=== PATIENT | male | born 1960 | race Caucasian/White ===

== ENCOUNTER 2019-10-14 16:42 | Inpatient (IN) | payer OTHER ==
[~2019-10-14] VITALS: Ht 182.9 cm; Wt 88.6 kg
[2019-10-14] MEDS ORDERED: COZAAR25 MG PO (16:52)
[2019-10-14] MEDS ORDERED: GLUCOPHAGE500 MG PO (16:52)
[2019-10-14] MEDS ORDERED: ULTRAM50 MG PO (16:52)
[2019-10-14] MEDS ORDERED: RITALIN5 MG PO (16:53)
[2019-10-14] MEDS ORDERED: LIPITOR20 MG PO (16:53)
[2019-10-14] MEDS ORDERED: TESTOSTERONE (16:54)
[2019-10-14] MEDS ORDERED: GLUCOTROL ER2.5 MG PO (17:05)
[2019-10-14] MEDS ORDERED: KAZANO 12.5-1,1 EACH PO (17:05)
[2019-10-14 17:51] VITALS: BP 138/86
--- NOTE | 2019-10-14 17:51 | NUR ---
PATIENT MOVED TO ROOM T-3 FOR [facility] CONSULT. HAS SIGN ALL REQUIRED DOCUMENTS NEEDED TO PROCEED WITH CONSULT INCLUDING TPA CONSENT AND TELEMED CONSENT.
--- NOTE | 2019-10-14 18:05 | NUR ---
[facility] CONNECTED VIA TELEMED.
[2019-10-14 18:06] VITALS: BP 150/95
[2019-10-14 18:06] LABS: HEMATOCRIT 39.8 % (42.0-54.0); HEMOGLOBIN 13.8 g/dL (13.5-17.5); MCH 31.3 pg (26.0-34.0); MCHC 34.7 g/dL (31.0-37.0); MCV 90.2 fL (80.0-100.0); MEAN PLATELET VOLUME 9.1 fL (7.4-10.4); NEUTROPHILS 69.2 % (40-80); PLATELET COUNT 203 10x3/uL (130-400); RBC 4.41 10x6/uL (4.20-6.10); RDW 13.3 % (11.5-14.5); WBC 7.7 10x3/uL (4.8-10.8)
--- NOTE | 2019-10-14 18:10 | NUR ---
CONNECTED WITH DR HUFFMAN WITH [facility] VIA TELEMED
[2019-10-14 18:41] LABS: INR 0.88 (0.85-1.17)
[2019-10-14 18:42] LABS: ALKALINE PHOSPHATASE 103 U/L (30-120); ALT (SGPT) 89 U/L (10-68); BILIRUBIN - TOTAL 0.71 mg/dL (0.2-1.3); CALCIUM 8.6 mg/dL (8.5-10.1); CARBON DIOXIDE 27.7 mmol/L (21.0-32.0); CKMB 6.6 U/L (0.0-3.6); CREATINE KINASE 243 UL (21-232); CREATININE - SERUM 1.1 mg/dL (0.6-1.3); GLUCOSE 122 mg/dL (74-106); PROTEIN - SERUM 6.4 g/dL (6.4-8.2); THYROID STIMULATING HORMONE 2.76 uIU/mL (0.36-3.74); UREA NITROGEN 20 mg/dL (7-18); eGFR NON AFRICAN AMERICAN 72 mL/min (90-120)
[2019-10-14 18:54] LABS: ALBUMIN 3.7 g/dL (3.4-5.0); CALC OSMOLALITY 275 mosm/kg (275-300); CHLORIDE - SERUM 100 mmol/L (98-107); MAGNESIUM - SERUM 1.6 mg/dL (1.8-2.4); POTASSIUM - SERUM 4.2 mmol/L (3.5-5.1); SODIUM 136 mmol/L (136-145)
[2019-10-14 19:09] VITALS: BP 155/98
[2019-10-14 19:29] LABS: UDS - AMPHET NEGATIVE QUAL (NEGATIVE); UDS - BARB NEGATIVE QUAL (NEGATIVE); UDS - BENZO NEGATIVE QUAL (NEGATIVE); UDS - COCAINE NEGATIVE QUAL (NEGATIVE); UDS - OPIATE NEGATIVE QUAL (NEGATIVE); UDS - PCP NEGATIVE QUAL (NEGATIVE); UDS - THC NEGATIVE QUAL (NEGATIVE)
[2019-10-14 19:35] LABS: BILIRUBIN NEGATIVE (NEGATIVE); GLUCOSE NEGATIVE (NEGATIVE); KETONE NEGATIVE (NEGATIVE); NITRITE NEGATIVE (NEGATIVE); SPECIFIC GRAVITY 1.015 (1.005-1.020); UROBILINOGEN NORMAL (NORMAL)
[2019-10-14 20:00] VITALS: BP 157/102
--- NOTE | 2019-10-14 20:27 | NUR ---
ATTEMPTED IV X3. UNABLE TO OBTAIN.EDP NOTIFIED
[2019-10-14 21:24] VITALS: BP 147/97
[2019-10-14 21:48] LABS: CKMB 6.8 U/L (0.0-3.6); CREATINE KINASE 234 UL (21-232)
[2019-10-14 21:51] LABS: TROPONIN-I < 0.017 ng/mL (0.000-0.060)
[2019-10-14 22:15] VITALS: BP 156/96
--- NOTE | 2019-10-15 03:00 | NUR ---
PUPILS OF PT EQUAL AND REACTIVE SPEACH IS CLEAR QUALITY PROJECT MANAGER ARE EQUAL PT REPORTS "I FEEL GREAT" PT IS ALERT AND [id number] EVEN AND UNLABORED EKG AT THIS TIME SHOWS NORMAL SINUS
[2019-10-15 03:20] LABS: HEMATOCRIT 39.9 % (42.0-54.0); HEMOGLOBIN 13.7 g/dL (13.5-17.5); LYMPHOCYTES 32.3 % (15-50); MCH 31.2 pg (26.0-34.0); MCHC 34.3 g/dL (31.0-37.0); MCV 90.9 fL (80.0-100.0); MEAN PLATELET VOLUME 8.9 fL (7.4-10.4); NEUTROPHILS 57.2 % (40-80); PLATELET COUNT 204 10x3/uL (130-400); RBC 4.39 10x6/uL (4.20-6.10); RDW 13.7 % (11.5-14.5)
[2019-10-15 03:22] LABS: WBC 5.4 10x3/uL (4.8-10.8)
[2019-10-15 03:48] LABS: ALBUMIN 3.5 g/dL (3.4-5.0); ALKALINE PHOSPHATASE 106 U/L (30-120); ALT (SGPT) 80 U/L (10-68); BILIRUBIN - TOTAL 0.69 mg/dL (0.2-1.3); CALC OSMOLALITY 283 mosm/kg (275-300); CALCIUM 8.5 mg/dL (8.5-10.1); CHLORIDE - SERUM 105 mmol/L (98-107); CKMB 6.6 U/L (0.0-3.6); CREATINE KINASE 258 UL (21-232); CREATININE - SERUM 1.1 mg/dL (0.6-1.3); GLUCOSE 125 mg/dL (74-106); PROTEIN - SERUM 6.3 g/dL (6.4-8.2); SODIUM 141 mmol/L (136-145); TROPONIN-I < 0.017 ng/mL (0.000-0.060); UREA NITROGEN 19 mg/dL (7-18); eGFR NON AFRICAN AMERICAN 72 mL/min (90-120)
[2019-10-15 04:00] VITALS: BP 132/79
[2019-10-15 05:29] VITALS: Ht 182.9 cm; Wt 88.6 kg
[2019-10-15 09:39] LABS: CKMB 6.8 U/L (0.0-3.6); CREATINE KINASE 227 UL (21-232); TROPONIN-I < 0.017 ng/mL (0.000-0.060)
[2019-10-15 10:10] VITALS: BP 150/97
[2019-10-15 13:45] VITALS: BP 166/65
--- NOTE | 2019-10-15 16:51 | NUR ---
WENT INTO PTS ROOM TO TAKE A BLOOD SUGAR AND THE PATIENT STATES THAT HE IS TAKING HIS HOME ORAL ANTIDIABETICS. OFFERED EDUCATION ON THE DANGERS OF TAKING HOME MEDICATIONS IN THE HOSPITAL AND THE PATIENT STATED THAT HE DOES NOT WANT INSULIN AND WILL CONTINUE TO TAKE THE MEDICATION UNTIL DISCHARGE.
--- NOTE | 2019-10-15 19:25 | NUR ---
REPORT RECEIVED AND ROUNDING COMPLETE. PATIENT LAYING IN BED EYE CLOSED BREATHING EVEN AND UNLABORED. DAY SHIFT REPORTED THE NEED FOR GEODON. RIGHT HAND PIV IS FUNNING FLUIDS AT THIS TIME. MOVED PATIENT TO ROOM 2137 FROM 2133. BED IN LOWEST LOCKED POSITION AND CALL WITHIN REACH. NO DISTRESS NOTED.
--- NOTE | 2019-10-15 19:59 | NUR ---
REPORT RECEIVED AND ROUNDING COMPLETE. PATIENT IS WALKING WITH , MASK ON, STEADY GAIT. RIGHT ARM MIDLINE RUNNING FLUIDS AT THIS TIME. NO DISTRESS NOTED. WHITE BOARD UPDATED.
[2019-10-15 20:00] VITALS: BP 140/89
[2019-10-16] VITALS: BP 127/76
[2019-10-16 04:00] VITALS: BP 117/75
--- NOTE | 2019-10-16 07:56 | NUR ---
SPOKE WITH DR. LOPEZ OVER THE PHONE AND HE STATES HE WILL NOT BE ABLE TO SEE PT UNTIL LATER TONIGHT AFTER CLINIC AND STATES IF PT HAD A STROKE IT WOULD NOT SHOW UP ON A CT SCAN UNTIL TWO DAYS LATER. HE STATES TO ORDER AN MRI OF THE BRAIN AND SINCE PT HAS ALREADY HAD A CAROTID DOPPLER AND ECHO THAT DOES NOT NEED ORDERED. I VERBALIZED UNDERSTANDING.
[2019-10-16 08:40] LABS: CALC OSMOLALITY 283 mosm/kg (275-300); CALCIUM 8.8 mg/dL (8.5-10.1); CHLORIDE - SERUM 106 mmol/L (98-107); CREATININE - SERUM 0.9 mg/dL (0.6-1.3); GLUCOSE 159 mg/dL (74-106); MAGNESIUM - SERUM 1.7 mg/dL (1.8-2.4); PHOSPHOROUS 4.1 mg/dL (2.5-4.9); POTASSIUM - SERUM 4.3 mmol/L (3.5-5.1); SODIUM 141 mmol/L (136-145); eGFR NON AFRICAN AMERICAN > 90 mL/min (90-120)
[2019-10-16 08:41] LABS: LYMPHOCYTES 27.4 % (15-50); MCH 31.1 pg (26.0-34.0); MCHC 34.1 g/dL (31.0-37.0); MCV 91.1 fL (80.0-100.0); MEAN PLATELET VOLUME 9.1 fL (7.4-10.4); NEUTROPHILS 64.4 % (40-80); PLATELET COUNT 203 10x3/uL (130-400); RDW 14.1 % (11.5-14.5); WBC 4.5 10x3/uL (4.8-10.8)
[2019-10-16 08:42] LABS: UREA NITROGEN 13 mg/dL (7-18)
[2019-10-16 08:56] LABS: LDL-HDL RATIO 3.6 ratio (1.5-3.5)
--- NOTE | 2019-10-16 09:10 | NUR ---
PT STATES HE HAS BEEN TAKING METFORMIN AND TOOK IT THIS AM. CALLED MRI AND THEY STATED THAT'S FINE THAT HE IS ALLOWED TO TAKE IT.
--- NOTE | 2019-10-16 09:57 | NUR ---
[facility] KAYE CALLED AND WANTS TO KNOW WHEN PT WILL GO FOR MRI. CALLED MRI AND SPOKE WITH MILADY SHE STATES NOT TILL AROUND 1330. CALLED [facility] KAYE AND STATED THIS TO HIM AND HE VERBALIZED UNDERSTANDING.
--- NOTE | 2019-10-16 10:28 | NUR ---
PT TOOK SHOWER BY SELF.
[2019-10-16 11:25] VITALS: BP 143/81
--- NOTE | 2019-10-16 12:41 | NUR ---
OT EVAL/NOTE: PT IS A 59 YO MALE, VISITING FROM [place]. STATES THAT HE WAS OUT ON HEIN, AND HAD A SMALL PERIOD OF TIME THAT HE DOES NOT REMEMBER ANYTHING. ACCORDING TO CHART, REPORTED CONFUSION FOR APPROX 20 MIN TIME PERIOD. PT PRESENTS TODAY WITH NO NEURO DEFECITS.. NEGATIVE FOR: DIPLOPIA, HEADACHE, DROOPING OF ONE SIDE OF FACE.. B UES/LES ARE EQUAL IN STRENGTH AND ROM; DOOR SERVICEMAN STRENGTH EQUAL.. PT AMBULATING HALLWAYS WITHOUT DIFFICULT; STANDING BALANCE IS GOOD; INDEP WITH ADLS.. REPORTED THAT HE TOOK A SHOWER THIS MORNING WITHOUT DIFFICULTY; A AND O X 4.. NO OT RECOMMENDED AT THIS TIME. THANK YOU FOR REFERAL, VONDA ALEXANDER, OTR/L
[2019-10-16 14:49] VITALS: BP 136/75
[2019-10-16] MEDS ORDERED: BAYER CHEWABLE81 MG PO (17:18)
--- NOTE | 2019-10-16 17:36 | NUR ---
GEOVANNA RN DC'D MIDLINE. PT GIVEN DC INSTRUCTIONS AND TEACHING DONE. PT VERBALIZED UNDERSTANDING AND STATED HE HAS NO FURHTER QUESTIONS. CHART COPY SIGNED. TELEMTRY DC'D AND RETURNED TO HISTORIC INTERPRETER. PT TAKEN OUT THROUGH ER ENTRANCE VIA WC BY YSABEL AND LEFT WITH IN HER PERSONAL VEHICLE WITH ALL BELONGINGS.
== END 2019-10-16 17:43 | disposition home or self-care (01) | DRG 69 ==
LOC: D.ER 16:42 → D.M2 19:52
PROVIDERS: Family Medicine; Internal Medicine Interventional Cardiology; ADMIT Family Medicine; ATTEND Family Medicine
PROC: 05HB33Z Insertion of Infusion Device into Right Basilic Vein, Percutaneous Approach (ICD-10-PCS; principal; 2019-10-14)
PROC: B54MZZA Ultrasonography of Right Upper Extremity Veins, Guidance (ICD-10-PCS; 2019-10-14)
DX: G45.9 Transient cerebral ischemic attack, unspecified (principal); E78.5 Hyperlipidemia, unspecified; I10 Essential (primary) hypertension; E11.9 Type 2 diabetes mellitus without complications